=== PATIENT | female | born 1995 | race Caucasian/White ===

== ENCOUNTER → 2017-05-14 | Outpatient (CLI) | payer OTHER ==
[2017-05-19 12:51] LABS: CHLAMYDIA TRACH RNA*** NOT DETECTED (NOT DETECTED); GC (NEIS GONORRHOEAE)RNA** NOT DETECTED (NOT DETECTED)
== END | disposition home or self-care (01) ==
LOC: C.LABSPEC 16:37
PROVIDERS: ATTEND Obstetrics & Gynecology
DX: O09.33 Supervision of pregnancy with insufficient antenatal care, third trimester (principal); Z3A.00 Weeks of gestation of pregnancy not specified

== ENCOUNTER → 2017-06-01 | Day surgery (SDC) | payer OTHER ==
--- NOTE | 2017-06-01 16:54 | Anesthesiology Progress Note ---
Anesthesia Progress Note Date of Service Jun 01, 2017. Progress Notes Patient seen at PAT department for upcoming vaginal delivery. She is currently 31 weeks. Issue patient is concerned with is that as an infant, patient had myelomeningocele repair. She reports no significant residual lumbar pain or radiculopathy (does admit rare, low back pain). No recent lumbar imaging. Vitals stable. She is concerned regarding epidural/spinal placement if needed with delivery. Lumbar spine scar noted (no bony abnormality appreciated). RRR. CTA. Patient reassured and advised that anesthesia will evaluate her at time of labor and attempt to place epidural/spinal with least amount of attempts possible. Patient voiced understanding. All questions answered. Business card given.
== END | disposition home or self-care (01) ==
LOC: C.ACU 13:34
PROVIDERS: ATTEND Obstetrics & Gynecology
DX: O26.893 Other specified pregnancy related conditions, third trimester (principal); M54.5 Low back pain; L90.5 Scar conditions and fibrosis of skin; Z3A.31 31 weeks gestation of pregnancy

== ENCOUNTER → 2017-07-08 | Outpatient (CLI) | payer OTHER | END | disposition home or self-care (01) | LOC: C.LABSPEC 15:30 | PROVIDERS: ATTEND Obstetrics & Gynecology | DX: O09.33 Supervision of pregnancy with insufficient antenatal care, third trimester (principal); Z3A.00 Weeks of gestation of pregnancy not specified ==

== ENCOUNTER → 2017-08-06 | Outpatient (CLI) | payer OTHER ==
[~2017-08-06] MED LIST: FERR1TAB13 PO; PRENTAB26 PO
== END | disposition home or self-care (01) ==
LOC: C.LAB1850 10:44
PROVIDERS: ATTEND Obstetrics & Gynecology
DX: R35.0 Frequency of micturition (principal)

== ENCOUNTER 2017-08-08 10:32 | Inpatient (IN) | payer OTHER ==
[~2017-08-08] VITALS: Ht 160 cm; Wt 77.5 kg
[2017-08-08] MEDS ORDERED: FERR1TAB13 PO (10:49)
[2017-08-08] MEDS ORDERED: PRENTAB26 PO (10:49)
[2017-08-08 10:50] VITALS: Ht 160 cm; Wt 77.5 kg
[2017-08-08] MEDS ORDERED: LACTATED RINGER'S 1000ML 1,000 ML IV PRN (11:08)
[2017-08-08] MEDS ORDERED: LACTATED RINGER'S 1000ML 1,000 ML IV SCH (11:08)
[2017-08-08 11:28] LABS: HEMATOCRIT 33.2 % (37-47); MEAN CELL VOLUME 88.1 fL (80-100); MEAN CORPUSCULAR HEMOGLOBIN 29.2 pg (25-34); MEAN CORPUSCULAR HGB CONC 33.1 g/dl (32-36); MEAN PLATELET VOLUME 11.5 fL (7.4-10.4); PLATELET COUNT 302 K/uL (130-400); RED CELL DISTRIBUTION WIDTH CV 13.4 % (11.5-14.5); RED CELL DISTRIBUTION WIDTH SD 42.8 fL (36.4-46.3); WHITE BLOOD COUNT 12.01 K/uL (4.8-10.8)
[2017-08-08 11:57] LABS: ALBUMIN 2.7 gm/dl (3.4-5.0); ALT/SGPT 15 U/L (12-78); AST/SGOT 11 U/L (15-37); BLOOD UREA NITROGEN 11 mg/dl (7-18); CARBON DIOXIDE 22 mmol/L (21-32); CREATININE 0.61 mg/dl (0.60-1.20); GLUCOSE 78 mg/dl (70-99); SODIUM 136 mmol/L (136-145)
[2017-08-08 11:59] LABS: ALKALINE PHOSPHATASE 212 U/L (45-117); TOTAL PROTEIN 7.4 gm/dl (6.4-8.2)
[2017-08-08] MEDS ORDERED: FENTANYL CITRATE INJ 50 MCG/1 ML 2 ML VIAL ONE (13:13)
[2017-08-08] MEDS ORDERED: BUPIVACAINE 0.25% 30 ML VIAL ONE (13:13)
[2017-08-08] MEDS ORDERED: EpHEDrine SULFATE INJ 50 MG/ML AMP ONE (13:13)
[2017-08-08] MEDS ORDERED: FENTANYL 2MCG/ML ROPIV 1.25MG/ML 100ML BAG EPI ONE (13:14)
[2017-08-08] MEDS ORDERED: NALOXONE HCL INJ 1 MG in SODIUM CHLORIDE 0.9% 1000ML 1,000 ML IV PRN (14:05)
[2017-08-08] MEDS ORDERED: LACTATED RINGER'S 1000ML 500 ML IV PRN (14:05)
[2017-08-08] MEDS ORDERED: DiphenhydrAMINE HCL 50 MG/ML VIAL IV PRN (14:15)
[2017-08-08] MEDS ORDERED: NALBUPHINE HCL INJ 10 MG/ML AMP IV PRN (14:15)
[2017-08-08] MEDS ORDERED: NALOXONE HCL INJ 0.4 MG/1 ML VIAL/CARP IV PRN (14:15)
[2017-08-08] MEDS ORDERED: FENTANYL 2MCG/ML ROPIV 1.25MG/ML 100ML BAG EPI PRN (14:15)
[2017-08-08] MEDS ORDERED: EpHEDrine SULFATE INJ 50 MG/ML AMP IV PRN (14:15)
[2017-08-08] MEDS ORDERED: ONDANSETRON INJ 2 MG/ML 2 ML VIAL IV PRN (14:15)
[2017-08-08] MEDS ORDERED: OXYTOCIN 30 UNITS/500ML NSS IV ONE (18:15)
[2017-08-08] MEDS ORDERED: SUPERCREAM 0.870 % 15GM JAR EXT PRN (19:00)
[2017-08-08] MEDS ORDERED: ACETAMINOPHEN 325 MG TAB PO PRN (19:00)
[2017-08-08] MEDS ORDERED: DIPHTHERIA/TETANUS/PERTUSSIS 0.5 ML SYR/VIAL IM. ONE (19:00)
[2017-08-08] MEDS ORDERED: OXYTOCIN 30 UNITS/500ML NSS IV PRN (19:00)
[2017-08-08] MEDS ORDERED: BENZOCAINE 20% AER SPR 82.5 GM CAN EXT PRN (19:00)
[2017-08-08] MEDS ORDERED: LANOLIN OINT EXT PRN (19:00)
[2017-08-08] MEDS ORDERED: OXYCODONE/ACETAMINOPHEN 5-325 TAB PO PRN (19:00)
[2017-08-08] MEDS ORDERED: HYDROCORTISONE ACETATE 25 MG SUPP PR PRN (19:00)
--- NOTE | 2017-08-08 20:06 | Medical Student: [facility] ---
Medical Student Delivery Note Selam delivered on 08/08/2017. She was 40 weeks and 1 day gestation. Once in labor and delivery, we augmented with Pitocin. Group B strep negative. A manual rupture of membranes was performed after epidural. Her heart rate tracing was category 1 and then she was fully dilated. She pushed only over a few contractions, delivering a female in left occiput anterior position. The infant was placed on the mother's belly and the 's mouth and nares suctioned. Gentle traction was used on the baby combined with maternal expulsive effort, the baby was delivered without difficulty. The infant was vigorous and cried immediately with apgars 8 initially and 9 at five minutes. Cord clamped and cut. Cord blood obtained. A small first-degree tear and right labial tear was repaired with 3-0 Vicryl. The patient then delivered the placenta with gentle traction on the umbilical cord. The patient did have some retained amniotic sac. This was manually removed with foreceps and then later a uterine currette was used to gently remove amniotic sac. Hemostasis was maintained throughout the manual extraction of the amniotic sac. Sponge and instrument counts correct. Estimated blood loss 350 mL.
--- NOTE | 2017-08-08 20:52 | Anesthesia Procedure Note ---
Anesthesia Epidural Removal Nt Date & Time Aug 08, 2017 at 20:51 Notes Mental Status: alert / awake / arousable, participated in evaluation Nausea / Vomiting: adequately controlled Pain: adequately controlled Airway Patency, RR, SpO2: stable & adequate BP & HR: stable & adequate Hydration State: stable & adequate Neuraxial Anesthesia: was administered Anesthetic Complications: no major complications apparent, pt satisfied with anesthetic care Epidural: removed without complications, with tip intact
[2017-08-08 21:36] VITALS: BP 135/87; PULSE 109; TEMP 36.7
--- NOTE | 2017-08-08 22:29 | DELIVERY SUMMARY ---
DATE OF OPERATION: 08/08/2017 PREOPERATIVE DIAGNOSES: 1. Intrauterine at 40 and 5/7th weeks. 2. Active labor. 4. Late presentation to care. POSTOPERATIVE DIAGNOSES: 1. Same. 2. Retained membranes. PROCEDURES: 1. Epidural anesthesia. 2. Amniotomy. 3. Normal spontaneous vaginal delivery. 4. Banjo curetting of the uterus for retained products of conception. SURGEON: Dr. Hatfield. ESTIMATED BLOOD LOSS: 400 mL. DESCRIPTION OF PROCEDURE: The patient presented to labor and delivery in active labor. She was admitted and underwent an epidural anesthetic. She was admitted for recheck after the epidural was 6 cm dilated, underwent an amniotomy for copious amounts of clear fluid, progressed to complete complete and +1 to +2 station and pushed with good effort to deliver a viable female infant in FREDDY presentation. There was no nuchal cord. The nose and mouth were bulb suctioned. The rest of the was then delivered without difficulty. The infant was placed on the maternal abdomen for drying and attention. The cord was clamped and cut at 1 one minute of light. Cord blood was obtained. The placenta was delivered spontaneously intact with a 3-vessel cord. However, there were trailing membranes coming from the cervix. These were removed with a ring forceps; however, I was till suspicious about retained membrane, so several manual explorations were performed of the uterus with the cylinder press operator's hand and then using both the Banjo curette and the ring forceps, the membranes were removed. Final evaluation of the uterine cavity did not reveal any membranes palpable. Hemostasis was obtained with diluted Pitocin and fundal massage. The right labial laceration was repaired with 4-0 Vicryl and a small vaginal laceration at the introitus with 3-0 Vicryl. Apgars and weight pending. Mother and baby doing well at the end of the delivery. I attest to the content of the Intraoperative Record and any orders documented therein. Any exception s are noted below.
[2017-08-08 23:20] VITALS: BP 132/78; PULSE 81; TEMP 36.8
[2017-08-09] MEDS: IBUPROFEN 600 MG TAB PO PRN ×4 (01:11→18:53)
[2017-08-09 03:15] VITALS: BP 122/77; PULSE 88; TEMP 36.8
--- NOTE | 2017-08-09 05:34 | Progress Note ---
Subjective Aug 09, 2017. Subjective conversation w/ patient, physical exam, lab review Ambulation: ambulating normally Voiding: no voiding problems Passing Gas: Yes Diet Tolerance: Regular Diet Lochia: Small Feeding Type: Breast Feeding Pain: bottom store, controlled with oral meds Objective Vital Signs Date Time Temp Pulse Resp B/P (MAP) Pulse Ox O2 Delivery O2 Flow Rate FiO2 08/08/17 23:20 Room Air 08/08/17 23:20 36.8 81 18 132/78 (96) Room Air 08/08/17 21:36 36.7 109 20 135/87 (103) Room Air Physical Exam General Appearance: WELL-APPEARING, WD/WN, NO APPARENT DISTRESS Respiratory/Chest: lungs clear Cardiovascular: regular rate, rhythm Abdomen: non tender, soft Fundus: Firm, Non-Tender, Relation to Umbilicus (at u) Extremities: non-tender, normal inspection, + pedal edema (trace) Laboratory Results Last 24 Hours Test 08/08/17 11:16 08/09/17 04:44 White Blood Count 12.01 K/uL Red Blood Count 3.77 M/uL Hemoglobin 11.0 g/dL Hematocrit 33.2 % Mean Corpuscular Volume 88.1 fL Mean Corpuscular Hemoglobin 29.2 pg Mean Corpuscular Hemoglobin Concent 33.1 g/dl RDW Standard Deviation 42.8 fL RDW Coefficient of Variation 13.4 % Platelet Count 302 K/uL Mean Platelet Volume 11.5 fL Sodium Level 136 mmol/L Potassium Level 4.0 mmol/L Chloride Level 103 mmol/L Carbon Dioxide Level 22 mmol/L Anion Gap 11.0 mmol/L Blood Urea Nitrogen 11 mg/dl Creatinine 0.61 mg/dl Est Creatinine Clear Calc Drug Dose 145.0 ml/min Estimated GFR () > 150.0 Estimated GFR (Non- 130.5 BUN/Creatinine Ratio 17.8 Random Glucose 78 mg/dl Calcium Level 9.0 mg/dl Total Bilirubin 0.3 mg/dl Aspartate Amino Transf (AST/SGOT) 11 U/L Alanine Aminotransferase (ALT/SGPT) 15 U/L Alkaline Phosphatase 212 U/L Total Protein 7.4 gm/dl Albumin 2.7 gm/dl Globulin 4.7 gm/dl Albumin/Globulin Ratio 0.6 Assessment and Plan Post- Day#: 1 Continue Routine Care: Doing well. Routine care.
--- NOTE | 2017-08-09 06:31 | Medical Student: [facility] ---
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 Subjective conversation w/ patient, physical exam, chart review, lab review Ambulation: ambulating normally Voiding: no voiding problems, no incontinence Diet Tolerance: Regular Diet Lochia: Moderate Feeding Type: Breast Feeding Pain: Controlled with ibuprofen Notes: Patient is a 22YOF now P1 PPD#1 s/p . Delivery was complicated by retention of amniotic sac. The amniotic sac was manually removed with foreceps and uterine curette. Review of Systems Constitutional: No fever, No chills Respiratory: No shortness of breath Cardiac: No chest pain, No edema, No palpitations Abdomen: No pain, No diarrhea, No constipation Female : No dysuria, No urinary frequency, No incontinence Objective Vital Signs Date Time Temp Pulse Resp B/P (MAP) Pulse Ox O2 Delivery O2 Flow Rate FiO2 08/09/17 03:15 36.8 88 18 122/77 (92) Room Air 08/08/17 23:20 Room Air 08/08/17 23:20 36.8 81 18 132/78 (96) Room Air 08/08/17 21:36 36.7 109 20 135/87 (103) Room Air Physical Exam General Appearance: WELL-APPEARING, WD/WN, NO APPARENT DISTRESS Respiratory/Chest: chest non-tender, lungs clear, normal breath sounds, no respiratory distress, no accessory muscle use Cardiovascular: regular rate, rhythm, no edema, no gallop, no murmur Abdomen: normal bowel sounds, non tender, soft, no organomegaly Fundus: Firm, Relation to Umbilicus (At the umbilicus ) Extremities: normal range of motion, non-tender, no pedal edema (trace pedal edema), no calf tenderness Laboratory Results Last 24 Hours Test 08/08/17 11:16 08/09/17 04:44 White Blood Count 12.01 K/uL Red Blood Count 3.77 M/uL Hemoglobin 11.0 g/dL Hematocrit 33.2 % Mean Corpuscular Volume 88.1 fL Mean Corpuscular Hemoglobin 29.2 pg Mean Corpuscular Hemoglobin Concent 33.1 g/dl RDW Standard Deviation 42.8 fL RDW Coefficient of Variation 13.4 % Platelet Count 302 K/uL Mean Platelet Volume 11.5 fL Sodium Level 136 mmol/L Potassium Level 4.0 mmol/L Chloride Level 103 mmol/L Carbon Dioxide Level 22 mmol/L Anion Gap 11.0 mmol/L Blood Urea Nitrogen 11 mg/dl Creatinine 0.61 mg/dl Est Creatinine Clear Calc Drug Dose 145.0 ml/min Estimated GFR () > 150.0 Estimated GFR (Non- 130.5 BUN/Creatinine Ratio 17.8 Random Glucose 78 mg/dl Calcium Level 9.0 mg/dl Total Bilirubin 0.3 mg/dl Aspartate Amino Transf (AST/SGOT) 11 U/L Alanine Aminotransferase (ALT/SGPT) 15 U/L Alkaline Phosphatase 212 U/L Total Protein 7.4 gm/dl Albumin 2.7 gm/dl Globulin 4.7 gm/dl Albumin/Globulin Ratio 0.6 Assessment and Plan Post- Day Number: 1 Continue Routine Care: Assessment: Patient is a 22YOF now P1 PPD#1 s/p Plan: Patient is doing well. Continue with ibuprofen for pain prn. Patient has only been out of bed to bathroom and back to bed. Discussed the need for her to be up and walking around the unit today. She is trying to breastfeed. Has had some issues with baby latching thus far and is using a shield. Encouraged to continue bringing the baby to breast. Vitals signs are stable. Will review H&H later this morning once available.
[2017-08-09 07:25] VITALS: BP 131/89; PULSE 94; TEMP 36.4; O2SAT 99
[2017-08-09 07:54] LABS: HEMATOCRIT 28.6 % (37-47); HEMOGLOBIN 9.5 g/dL (12.0-16.0)
[2017-08-09] MEDS: DOCUSATE SODIUM 100 MG CAP PO SCH ×2 (08:00→19:24)
[2017-08-09] MEDS: PRENATAL VITAMIN TAB PO SCH (08:00)
--- NOTE | 2017-08-09 11:02 | Discharge Instructions ---
Discharge Instructions Date of Service Aug 09, 2017. Admission Reason for Admission: Check Labor Discharge Discharge Diagnosis / Problem: Vaginal Delivery Discharge Goals Goal(s): Routine recovery after delivery Medications Continue Dispensed Medications: supercream, dermaplast, tucks, lansinoh Activity Recommendations Activity Limitations: per Instructions/Follow-up section . Instructions / Follow-Up Instructions / Follow-Up ACTIVITY RECOMMENDATIONS: * Gradual return to full activity over the next 2-3 weeks. * No lifting - nothing heavier than baby over the next 2-3 weeks. * Do not engage in vigorous exercise, sexual activity or sports until cleared by your physician. * Do not drive or operate any motorized equipment until cleared by your physician. * You may shower/bathe daily. MEDICATIONS: For discomfort or pain, you may use Acetaminophen (Tylenol), Ibuprofen (Advil), or Naproxen (Aleve) following the package directions. For constipation you may use Colace following the package directions. BREAST CARE: If you are not breast feeding: * Wear a supportive bra 24 hours a day for one to two weeks. * Avoid stimulating your breasts and nipples as much as possible during the first few weeks after delivery. * When taking a shower, have the warm water hit your back, not breasts. * When your breasts feel full, apply ice packs. Usually three to four times a day helps ease the discomfort. * Take a mild pain medication (Tylenol / Motrin) when you are uncomfortable. If breast feeding: * Use breast milk to lubricate nipples. Lansinoh cream may be used for sore nipples. You do not need to remove cream prior to breast feeding. If using a different brand of cream, check the label for directions regarding removal of cream prior to nursing. * Wear a supportive bra. * If having problems with breasts or breast feeding, call a project management consultant or your health care provider. EPISIOTOMY CARE: After delivery, if you have an episiotomy (stitches), the following steps will ease discomfort and aid healing. * For the first 24 hours after delivery, place ice packs next to your episiotomy to help reduce swelling. * After the first 24 hour-period, sitz baths, either portable or in the tub, are suggested. A shower with a shower arm sprayed over the episiotomy may be comforting. * Norma care should be done after each voiding and bowel movement. Squirt warm water from a plastic bottle over the perineum (region of the body between the anus and urinary opening) and pat dry. * Use Dermoplast to ease discomfort. Shake container. [place]arrison directly over the episiotomy. Place a Tucks on a clean sanitary pad next to your episiotomy. SPECIAL CARE INSTRUCTIONS: When you are discharged from the hospital, it is important for you to follow the instructions listed below: * During the first week at home, you should be able to care for yourself and your baby. In addition, the usual light household activities are encouraged. * Limit your activities to the way you feel. Do not try to clean the house or move furniture. Be sensible. * If you actively engage in sports and have done so up until the time of your delivery, you may resume these activities as soon as you feel able. This may take up to one month or even longer. Use good judgment. * Continue to take your vitamins for at least six weeks after the of your baby. * Your diet need not be limited unless you were on a special diet before your delivery. Breast-feeding mothers need around 2500 calories per day and at least 64-80 ounces of fluid per day (8 to 10 glasses). * You should eat foods from the four major food groups. Crash diets or fad diets are to be avoided. Eating lean meats, fresh fruits and vegetables, low-fat dairy products, high fiber foods and a regular exercise program, will help you get back to your pre- weight without putting your health at risk. * Constipation is sometimes a problem after delivery. Take a mild laxative as needed. If breast feeding, Milk of Magnesia is acceptable to use. You may use a suppository or Fleets enema if no episiotomy. * A daily shower or tub bath is suggested. Be sure to thoroughly and gently dry the perineum. * A bloody vaginal discharge will usually continue until around four weeks post . A small amount of bleeding may continue for as long as six weeks. Vaginal discharge changes from the bright red bleeding after delivery to pink then brownish and finally yellowish-pink before becoming white and disappearing. * Bleeding may increase with activity. Your first period may come in 4-8 weeks. If you are breast feeding, your period may be delayed even longer. * Mclean (sex) can begin whenever both you and your partner feel comfortable and do not have any form of genital infection. It is recommended that you wait at least six weeks for internal and external healing to occur. If you have questions, please talk to your health care practitioner. A condom should be used to prevent infection and . * Foreplay, gentle intercourse and lubrication is very important the first several times to prevent pain. A water-based lubricant such as K-Y jelly or Astroglide may be used. * If you have RH negative blood and your baby is RH positive, you will receive RHOGAM by injection prior to discharge. The nurse will give you a card to keep with you that has the date and place that you received RHOGAM after delivery. * During your care, you had a Rubella screen done to check for the presence of rubella antibodies in your blood. If your test was negative, you will receive a Rubella vaccine prior to discharge. This vaccine may cause a fever, soreness at the injection site and flu-like symptoms. If these symptoms persist, notify your health care practitioner. is not advised for one month after a Rubella vaccine. * Verbalizes understanding of car seat law as reviewed with patient nursing. * Car Seat hand-out given and reviewed with patient by nursing. * Shaken baby information reviewed with patient by nursing. Call you doctor if: * Heavy bleeding (saturating several pads an hour) or passing clots the size of your fist. * A fever >101 degrees F (38.3 degrees C) on two occasions four hours apart and /or chills. * Unusual pain in the pelvic or vaginal areas. * "Baby Blues" lasting longer than two weeks. If you have any questions or concerns, call your health care practitioner at . FOLLOW UP VISIT: * Please call the office at to schedule a 6 week examination. It is important you keep this appointment. It is important for you to make arrangements for either yearly or twice yearly check-ups thereafter. Current Hospital Diet Patient's current hospital diet: Regular OB Diet Discharge Diet Recommended Diet: Regular Diet Pending Studies Studies pending at discharge: no Medical Emergencies . Who to Call and When: Medical Emergencies: If at any time you feel your situation is an emergency, please call 911 immediately. . Non-Emergent Contact Non-Emergency issues call your: Primary Care Provider . . "Provider Documentation" section prepared by Hayde Schultz. . VTE Core Measure Inpt VTE Proph given/why not?: Treatment not indicated
[2017-08-09 11:15] VITALS: BP 125/79; PULSE 84; TEMP 36.6; O2SAT 98
[2017-08-09 15:28] VITALS: BP 122/83; PULSE 80; TEMP 36.4; O2SAT 99
[2017-08-10 00:20] VITALS: BP 133/82; PULSE 75; TEMP 36.7
[2017-08-10] MEDS: IBUPROFEN 600 MG TAB PO PRN ×2 (00:31→06:16)
--- NOTE | 2017-08-10 07:19 | Medical Student: [facility] ---
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 Subjective conversation w/ patient, conversation w/ family, physical exam, chart review, lab review Ambulation: ambulating normally Voiding: no voiding problems Diet Tolerance: Regular Diet Lochia: Small Feeding Type: Breast Feeding Pain: Minimal. Controlled with ibuprofen. Notes: Patient is a 22YOF now P1 s/p day #2. Delivery was complicated by retained amniotic sac which was removed with manual foreceps and uterine currette. Patient is breast feeding with a nipple shield. Baby is having some difficulty latching. Review of Systems Constitutional: No fever, No chills Respiratory: No shortness of breath Cardiac: No chest pain, No edema Breast: No breast pain Abdomen: + pain, No nausea, No vomiting Female : No dysuria, No urinary frequency, No incontinence Objective Vital Signs Date Time Temp Pulse Resp B/P (MAP) Pulse Ox O2 Delivery O2 Flow Rate FiO2 08/10/17 00:20 Room Air 08/10/17 00:20 36.7 75 18 133/82 (99) Room Air 08/09/17 15:28 36.4 80 20 122/83 (96) 99 Room Air 08/09/17 15:28 99 Room Air 08/09/17 11:15 36.6 84 18 125/79 (94) 98 Room Air 08/09/17 07:25 99 Room Air 08/09/17 07:25 36.4 94 20 131/89 (103) 99 Room Air Physical Exam General Appearance: WELL-APPEARING, WD/WN, NO APPARENT DISTRESS Respiratory/Chest: chest non-tender, lungs clear, normal breath sounds, no respiratory distress, no accessory muscle use Cardiovascular: regular rate, rhythm, no edema, no gallop, no JVD, no murmur Abdomen: normal bowel sounds, non tender, soft Fundus: Firm, Relation to Umbilicus (At the level of the umbilicus) Extremities: normal range of motion, non-tender, normal inspection, no calf tenderness, + pedal edema (trace) Laboratory Results Last 24 Hours Test 08/09/17 07:33 Hemoglobin 9.5 g/dL Hematocrit 28.6 % Assessment and Plan Post- Day Number: 2 Continue Routine Care: Assessment: Patient is a 22YOF now P1 s/p PPD#2. Delivery was complicated by retained amniotic sac which was removed with manual foreceps and uterine banjo curette. Plan: Patient is ready to go home. Discussed routine care. Recommended to continue ibuprofen prn for pain. Also discussed that we would want to know about any increased bleeding or fever given that she had instrumentation of the uterus post- for retained amniotic sac. Encouraged patient to continue bringing baby to breast and that will become easier once her milk comes in.
--- NOTE | 2017-08-10 07:21 | Progress Note ---
Subjective Aug 10, 2017. Subjective conversation w/ patient, physical exam Ambulation: ambulating normally Voiding: no voiding problems Diet Tolerance: Regular Diet Lochia: Small Feeding Type: Breast Feeding Pain: no pain issues Objective Vital Signs Date Time Temp Pulse Resp B/P (MAP) Pulse Ox O2 Delivery O2 Flow Rate FiO2 08/10/17 00:20 Room Air 08/10/17 00:20 36.7 75 18 133/82 (99) Room Air 08/09/17 15:28 36.4 80 20 122/83 (96) 99 Room Air 08/09/17 15:28 99 Room Air 08/09/17 11:15 36.6 84 18 125/79 (94) 98 Room Air 08/09/17 07:25 99 Room Air 08/09/17 07:25 36.4 94 20 131/89 (103) 99 Room Air Physical Exam General Appearance: WELL-APPEARING, WD/WN, NO APPARENT DISTRESS Respiratory/Chest: lungs clear Cardiovascular: regular rate, rhythm Abdomen: non tender, soft Fundus: Firm, Non-Tender, Relation to Umbilicus (2 down) Extremities: non-tender Laboratory Results Last 24 Hours Test 08/09/17 07:33 Hemoglobin 9.5 g/dL Hematocrit 28.6 % Assessment and Plan Post- Day#: 2 Continue Routine Care: stable routine care. f/u 6 wks pp, instructions reviewed.
[2017-08-10 07:43] VITALS: BP 125/77; PULSE 77; TEMP 36.7; O2SAT 99
[2017-08-10] MEDS: PRENATAL VITAMIN TAB PO SCH (08:22)
[2017-08-10] MEDS: DOCUSATE SODIUM 100 MG CAP PO SCH (08:22)
[2017-08-10 09:16] VITALS: O2SAT 99
== END 2017-08-10 13:00 | disposition home or self-care (01) | DRG 767 ==
LOC: C.LD 10:32 → C.OPB 10:32 → C.LD 11:10 → C.OBG 21:19
PROVIDERS: ADMIT Obstetrics & Gynecology; ATTEND Obstetrics & Gynecology
PROC: 10D17Z9 Manual Extraction of Products of Conception, Retained, Via Natural or Artificial Opening (ICD-10-PCS; principal; 2017-08-08)
PROC: 0HQ9XZZ Repair Perineum Skin, External Approach (ICD-10-PCS; principal; 2017-08-08)
PROC: 10E0XZZ Delivery of Products of Conception, External Approach (ICD-10-PCS; principal; 2017-08-08)
DX: O70.0 First degree perineal laceration during delivery (principal); Z37.0 Single live birth; O73.1 Retained portions of placenta and membranes, without hemorrhage; Z3A.40 40 weeks gestation of pregnancy

== ENCOUNTER 2022-06-23 20:24 | Inpatient (IN) ==
[2022-06-23] MEDS: LACTATED RINGER'S 1,000 ML IV PRN ×2 (21:00→22:56)
[2022-06-23] MEDS ORDERED: LIDOCAINE 1% LOCAL 20 ML VIAL INFIL PRN (21:05)
[2022-06-23] MEDS ORDERED: OXYTOCIN 30 UNITS/500 ML BAG IV PRN (21:05)
[2022-06-23] MEDS ORDERED: ePHEDrine sulfate 50 MG/ML AMP IV PRN (21:10)
[2022-06-23] MEDS ORDERED: NALOXONE HCL 0.4 MG/1 ML VIAL/CARP IV PRN (21:10)
[2022-06-23] MEDS ORDERED: NALBUPHINE HCL INJ 10 MG/ML AMP IV PRN (21:10)
[2022-06-23] MEDS ORDERED: fentaNYL 2MCG/ML ROPIVACAINE 1.25MG/ML 100 ML BAG EPI PRN (21:10)
[2022-06-23] MEDS ORDERED: NALOXONE HCL 1 MG in SODIUM CHLORIDE 0.9% 1000ML 1,000 ML IV PRN (21:10)
[2022-06-23] MEDS ORDERED: diphenhydrAMINE 50 MG/ML VIAL IV PRN (21:10)
--- NOTE | 2022-06-23 21:10 | Anesthesiology Consultation ---
Date of Service June 23, 2022 Assessment & Plan (1) Encounter for pre-operative examination: Chart Review Chart Review: Patient NOT seen in Pre Admission Testing and Acceptable Risk for Labor Epidural Consults Requested none History Allergies Allergy/AdvReac Type Severity Reaction Status Date / Time amoxicillin Allergy Intermediate HIVES Verified 06/23/22 11:54 latex Allergy Unknown HIVES Verified 06/19/22 08:53 Medications Home Medications Medication Instructions Recorded Confirmed Last Taken prenat.vits,nicole,auf-iiep-ogind 1 tab PO DAILY 10/29/21 06/19/22 05/25/22 albuterol sulfate inhalation 05/15/22 06/19/22 06/19/22 12:00 iron 18 mg tablet 18 mg PO DAILY 06/23/22 06/23/22 06/19/22 12:00 Past Medical History Medical History Asthma Meningomyelocele depression Varicella vaccination Past Family History Family History Father Diabetes Grandmother (Paternal) Ovarian cancer Grandmother (Maternal) Thyroid disease Colorectal cancer Aunt Breast cancer paternal Past Surgical History Surgical History H/O oral surgery S/P loop electrosurgical excision procedure Social History Smoking Status: Former smoker Hx Alcohol Use: No Hx Substance Use: No Physical Exam Vital Signs Last Vital Signs Temp 98.8 F 06/23/22 20:39 Pulse 76 06/23/22 21:07 Resp 16 06/23/22 20:39 BP 139/89 06/23/22 20:32 Pulse Ox 98 06/23/22 21:07
[2022-06-23] MEDS ORDERED: ePHEDrine sulfate 50 MG/ML AMP ONE (21:12)
[2022-06-23] MEDS ORDERED: SODIUM CHLORIDE 0.9% INJ 10 ML VIAL ONE (21:13)
[2022-06-23] MEDS ORDERED: fentaNYL citrate 100 MCG/2 ML VIAL ONE (21:13)
[2022-06-23] MEDS ORDERED: BUPIVACAINE 0.25% 30 ML VIAL ONE (21:13)
[2022-06-23] MEDS ORDERED: LIDOCAINE 2%/EPINEPHRINE 1:200,000 20 ML SDV ONE (21:14)
[2022-06-23] MEDS ORDERED: fentaNYL 2MCG/ML ROPIVACAINE 1.25MG/ML 100 ML BAG EPI ONE (21:14)
[2022-06-23 21:42] LABS: Hematocrit (blood only) 27.4 % (34.1-44.9); Hemoglobin 8.9 g/dl (12.0-16.0); Mean Corpuscular Hemoglobin 26.1 pg (25.0-34.0); Mean Corpuscular Hgb Conc 32.5 g/dL (32.0-36.0); Mean Corpuscular Volume 80.4 fL (80.0-100.0); Mean Platelet Volume 12.4 fL (9.4-12.3); Platelet Count 281 K/uL (130-400); RDW Coefficient of Variation 13.8 % (11.5-14.5); RDW Standard Deviation 39.5 fL (36.4-46.3); Red Blood Count 3.41 M/uL (3.93-5.22)
--- NOTE | 2022-06-23 23:20 | History & Physical Report ---
Date of Service June 23, 2022 Assessment & Plan (1) Encounter for supervision of normal in multigravida: Plan: Admit to L&D. EFM/toco. Labs. OK for epidural when she desires. Admission and Anticipated Discharge Date Admission Date: June 23, 2022 History of Present Illness Chief Complaint: labor Primary Care Provider: LM PCP 27yo @ 39 5/7, presents with spontaneous labor. Contractions worsening throughout the day. No vaginal bleeding, no leaking fluid. + movement. Patient with hx of meningomyelocele Recommend Folic acid 4mg flu shot given 11/03/21 [facility] Registry- pap smear due 06/2022- please collect at [facility] Flu shot given 04/03/22 - [place] Allergies Allergy/AdvReac Type Severity Reaction Status Date / Time amoxicillin Allergy Intermediate HIVES Verified 06/23/22 22:53 latex Allergy Unknown HIVES Verified 06/23/22 22:53 Home Medications Medication Instructions Recorded Confirmed Type prenat.vits,nicole,afg-jxit-qexfo 1 tab PO DAILY 10/29/21 06/23/22 History albuterol sulfate See Rx Instructions .Route 05/15/22 06/23/22 History .COMPLEX PRN asthma iron 18 mg tablet 18 mg PO DAILY 06/23/22 06/23/22 History Patient History Medical History Asthma Meningomyelocele depression Varicella vaccination Surgical History H/O oral surgery S/P loop electrosurgical excision procedure Family History Father Diabetes Grandmother (Paternal) Ovarian cancer Grandmother (Maternal) Thyroid disease Colorectal cancer Aunt Breast cancer paternal Social History Smoking Status: Former smoker Second Hand Exposure: No; Do You Dip or Chew Tobacco: No; Tobacco Cessation Education Requested by Patient: No Hx Alcohol Use: No Hx Substance Use: No Preferred Language: Yoruba Communication Ability: Effective Program Trainer Required: No Beliefs That Will Affect Care: None marital status: Single marital status details: clark Summers (23) [phone] Current Living Situation: Family Current Living Situation Comment: lives with clark, daughter, no pets, Kalyani Marte (FOBs brother), FOB nephew current occupational status: employed current occupation: [employer] Other Information That Helps Us Care for You: No Feels Safe at Home: Yes Safety Concerns: Feels Safe At This Time Assistive Devices: None Review of Systems All systems reviewed & are unremarkable except as noted in HPI & below Physical Exam Physical Exam: 7cm per RN FHT Cat 1 toco Q3-4 min Constitutional: WD/WN, vitals as above Respiratory: normal respiratory effort, lungs clear to auscultation no respiratory distress Cardiovascular: Rate/Rhythm: regular rate and regular rhythm Gastrointestinal (Abdomen): Inspection/Auscultation: abdomen normal to inspection Percussion/Palpation: abdomen soft; abdomen nontender Gravid. No s/s chorio or abruption. Skin: no rashes, warm and dry Psychiatric: A+Ox3, euthymic affect Results & Data ([facility]) Vital Signs (Past 12 Hours) Vital Signs Temp Pulse Resp BP Pulse Ox 06/23/22 21:30 37.1 C 102 H 16 139/89 98 06/23/22 22:34 20 06/23/22 22:34 20 06/23/22 23:14 20 06/23/22 23:14 36.8 C 20 06/23/22 23:13 71 98 06/23/22 23:08 98 06/23/22 23:08 79 06/23/22 23:08 90 131/73 06/23/22 23:03 75 96 06/23/22 23:01 67 130/66 93 06/23/22 22:58 86 98 06/23/22 22:56 67 130/71 06/23/22 22:53 77 97 06/23/22 22:52 77 134/80 93 06/23/22 22:48 70 97 06/23/22 22:47 77 130/84 06/23/22 22:43 75 96 06/23/22 22:41 92 H 128/76 06/23/22 22:38 80 98 06/23/22 22:36 87 126/78 06/23/22 22:33 77 127/74 06/23/22 22:32 85 98 06/23/22 22:31 84 135/95 06/23/22 22:27 102 H 98 06/23/22 22:28 90 130/84 06/23/22 22:22 85 99 06/23/22 22:21 88 123/73 06/23/22 22:17 99 06/23/22 22:17 76 06/23/22 22:17 77 119/69 06/23/22 22:12 79 99 06/23/22 22:11 72 130/62 06/23/22 22:07 92 H 98 06/23/22 22:08 81 121/65 06/23/22 22:02 73 124/68 99 06/23/22 22:01 80 129/66 06/23/22 21:57 76 99 06/23/22 21:56 88 121/64 06/23/22 21:52 74 99 06/23/22 21:51 77 124/63 06/23/22 21:47 93 H 98 06/23/22 21:42 127 H 98 06/23/22 21:41 104 H 132/73 06/23/22 21:37 85 99 06/23/22 21:36 76 141/74 H 06/23/22 21:32 80 99 06/23/22 21:31 77 154/86 H 06/23/22 21:27 95 H 99 06/23/22 21:22 84 100 06/23/22 21:17 84 99 06/23/22 21:12 82 98 06/23/22 21:07 76 98 06/23/22 21:02 81 100 06/23/22 20:39 16 06/23/22 20:39 37.1 C 16 06/23/22 20:32 100 H 139/89 Coding Level of Care Code None Diagnoses Encounter for supervision of normal in multigravida Z34.80
[2022-06-24] MEDS ORDERED: OXYTOCIN 30 UNITS/500 ML BAG IV PRN ×2 (01:47→07:15)
--- NOTE | 2022-06-24 05:11 | Delivery Summary ---
Vaginal Delivery Summary Date of Service June 24, 2022 Vaginal Delivery Summary and 1st Degree LAC Vaginal Delivery Summary: Pre-delivery diagnoses: 27yo @ 39 6/7, spontaneous labor Post-delivery diagnoses: same Procedure: spontaneous vaginal delivery Surgeon: Emilia Combs DO Complications: none Findings: Viable female . Apgars: 8/9 . Weight pending, please see nursery records Estimated blood loss: 300ml Description of delivery: The patient progressed to complete with epidural anesthesia. She then began to push. She spontaneously vaginally delivered a viable from the cephalic presentation. The head delivered in FREDDY pos ition. The anterior shoulder delivered, followed by the posterior shoulder, followed by the body. No nuchal. The baby was placed on mother's abdomen and a spontaneous cry was heard. Delayed cord clamping was employed, and the cord was doubly clamped and cut. Cord blood was obtained. The placenta was delivered spontaneously intact with a 3-vessel cord. The uterus and vagina were swept of clots and debris. IV pitocin was given. The uterus became firm. The cervix, vagina, and perineum were inspected and a small 1st degree perineal laceration was repaired with a [id number] suture of 3-0 vicryl. Excellent hemostasis was observed. The mother and baby are recovering in stable and good condition in the room. Sponge, needle and instrument counts were correct x 2. Emilia Combs DO [facility] Vaginal Delivery Charge Vaginal Delivery Codes: 72634 global code for the antepartum, delivery, and post- Delivery Type Details: and 1st Degree LAC
--- NOTE | 2022-06-24 07:09 | Anesthesia Procedure Note ---
Date of Service June 24, 2022 Anesthesia Post Epidural Note Vital Signs Vital Signs: Temp Pulse Resp BP Pulse Ox 36.7 C 77 20 138/86 94 06/24/22 03:07 06/24/22 07:08 06/24/22 03:07 06/24/22 07:08 06/24/22 05:11 Pain Intensity Abdomen: Pain Intensity: 2 Notes Mental Status: alert / awake / arousable and participated in evaluation Patient Amnestic to Procedure: No Nausea / Vomiting: adequately controlled Pain: adequately controlled Airway Patency, RR, SpO2: stable & adequate BP & HR: stable & adequate Hydration State: stable & adequate Neuraxial Anesthesia: was administered and sensory block is resolving Anesthetic Complications: no major complications apparent and Pt Satisfied with anesthetic care Epidural: Removed without complications and With tip intact
[2022-06-24] MEDS ORDERED: DIPHTHERIA/TETANUS/PERTUSSIS 0.5 ML SYR/VIAL IM ONE (07:15)
[2022-06-24] MEDS ORDERED: oxyCODONE/ACETAMINOPHEN 5mg/325mg TAB PO PRN (07:15)
[2022-06-24] MEDS ORDERED: BENZOCAINE 20% AER SPR 82.5 GM CAN EXT PRN (07:15)
[2022-06-24] MEDS ORDERED: bisacodyL 10 MG SUPP PR PRN (07:15)
[2022-06-24] MEDS ORDERED: HYDROCORTISONE ACETATE 25 MG SUPP PR PRN (07:15)
[2022-06-24] MEDS ORDERED: ACETAMINOPHEN 325 MG TAB PO PRN (07:15)
[2022-06-24] MEDS: IBUPROFEN 600 MG TAB PO PRN ×4 (08:42→23:05)
[2022-06-24] MEDS: DOCUSATE SODIUM 100 MG CAP PO SCH ×2 (08:42→23:05)
[2022-06-24] MEDS: PRENATAL VITAMIN 1 TAB PO SCH (08:42)
[2022-06-25 06:33] LABS: Hematocrit (blood only) 25.5 % (34.1-44.9); Hemoglobin 8.1 g/dl (12.0-16.0)
[2022-06-25] MEDS: IBUPROFEN 600 MG TAB PO PRN (07:43)
[2022-06-25] MEDS: PRENATAL VITAMIN 1 TAB PO SCH (07:43)
[2022-06-25] MEDS: DOCUSATE SODIUM 100 MG CAP PO SCH (07:43)
--- NOTE | 2022-06-25 09:07 | Obstetrical Progress Note ---
Date of Service June 25, 2022 Assessment & Plan (1) Encounter for care and examination after delivery: satisfactory progress d/c to home follow up in6 weeks Subjective Ambulation: ambulating normally Voiding: no voiding problems Passing Gas:: Yes Diet Tolerance:: regular diet Lochia:: Small Feeding Type:: breast feeding doing well Review of Systems All systems reviewed & are unremarkable except as noted in HPI & below Physical Exam Constitutional WD/WN, vitals as above Psychiatric A+Ox3, euthymic affect Genitourinary OB Exam Abdomen: + fundal height Fundus: + firm and + relation to umbilicus (2 below U) Results & Data ([facility]) Vital Signs (Past 12 Hours) Vital Signs Temp Pulse Resp BP BP Pulse Ox O2 Del Method 06/25/22 04:45 98.1 F 78 18 137/87 98 Room Air 06/24/22 23:05 97.5 F L 76 18 128/80 97 Room Air
[2022-06-25] MEDS ORDERED: bisacodyL 5 MG TABEC PO SCH (20:00)
== END 2022-06-25 14:30 | disposition home or self-care (01) | DRG 807 ==
LOC: OPB 20:24 → 4S1 20:26 → 4E2 06-24 08:02
DX: O70.0 First degree perineal laceration during delivery; Z91.040 Latex allergy status; O09.893 Supervision of other high risk pregnancies, third trimester; O99.52 Diseases of the respiratory system complicating childbirth; Z79.899 Other long term (current) drug therapy; J45.909 Unspecified asthma, uncomplicated; Z88.0 Allergy status to penicillin; Z3A.39 39 weeks gestation of pregnancy; Z37.0 Single live birth; Z87.891 Personal history of nicotine dependence